=== PATIENT | male | born 1935 | race Caucasian/White ===

== ENCOUNTER 2023-07-11 21:26 | Inpatient (IN) | payer BC ==
[~2023-07-11] VITALS: Ht 165.1 cm; Wt 56.7 kg
[~2023-07-11 21:26] MED LIST: ASA81 PO; ASCO500T20 PO; CALC200T56 PO; CARV6.2554 PO; LIP10 PO; LON10 PO; LUTE6TAB PO; POLY17PO4 PO; SER25 PO; VITD2000 PO; ZIT250 PO; [UNRECOGNIZED DRUG - CODE] PO
[2023-07-11 21:40] VITALS: BP_SYST 123; PULSE 60; RESP 19; TEMP 97.9; O2SAT 97
[2023-07-11 23:18] LABS: BASOPHILS % (AUTO) 0.9 % (0.0-2.0); EOSINOPHILS # (AUTO) 0.3 K/uL (0.0-0.4); EOSINOPHILS % (AUTO) 6.6 % (0.0-4.0); HEMATOCRIT 28.4 % (36-54); HEMOGLOBIN 9.6 g/dL (14.0-18.0); LYMPHOCYTES # (AUTO) 1.5 K/uL (1.0-5.5); LYMPHOCYTES % (AUTO) 29.7 % (20.5-51.5); MEAN CORPUSCULAR HEMOGLOBIN 32 pg (27-31); MEAN CORPUSCULAR HGB CONC 34 % (32-36); MEAN CORPUSCULAR VOLUME 93 fL (79.0-98.0); MONOCYTES # (AUTO) 0.8 K/uL (0.0-1.0); MONOCYTES % (AUTO) 15.9 % (1.7-9.3); NEUTROPHILS # (AUTO) 2.3 K/uL (1.8-7.7); NEUTROPHILS % (AUTO) 46.9 % (40.0-70.0); PLATELET COUNT (AUTO) 279 K/uL (130-430); RED BLOOD CELL COUNT(AUTO) 3.04 MIL/uL (4.2-6.2); RED CELL DISTRIBUTION WIDTH 13.8 % (9.0-15.0)
[2023-07-11 23:25] LABS: BILIRUBIN,URINE NEGATIVE (NEGATIVE); BLOOD, URINE NEGATIVE (NEGATIVE); CLARITY/URINE CLEAR (CLEAR); COLOR,URINE YELLOW (YELLOW); GLUCOSE,URINE NEGATIVE (NEGATIVE); KETONES,URINE NEGATIVE (NEGATIVE); LEUKOCYTE ESTERASE ,URINE NEGATIVE (NEGATIVE); NITRITE, URINE NEGATIVE (NEGATIVE); PROTEIN URINE NEGATIVE (NEGATIVE); UROBILINOGEN,URINE 0.2 (0.2-1.0)
[2023-07-11 23:35] LABS: ALANINE AMINOTRANSFERASE 18 U/L (12-78); ALBUMIN 3.1 g/dL (3.4-4.8); ANION GAP 5 (5-15); ASPARTATE AMINOTRANSFERASE 16 U/L (10-37); CALCIUM 8.7 mg/dL (8.4-11.0); CARBON DIOXIDE 29 mmol/L (23-29); CHLORIDE 104 mmol/L (98-107); CREATININE 1.15 mg/dL (0.55-1.30); GLUCOSE 104 mg/dL (74-106); POTASSIUM 3.5 mmol/L (3.5-5.1); SODIUM SERUM 138 mmol/L (136-145); TOTAL BILIRUBIN 0.5 mg/dL (0.0-1.0); TOTAL PROTEIN, SERUM 6.2 g/dL (6.4-8.3); UREA NITROGEN, BLOOD 19 mg/dL (8-21)
[2023-07-11] MEDS ORDERED: SER25 PO (23:43)
[2023-07-11] MEDS ORDERED: ATOR10TA68 PO (23:43)
[2023-07-11] MEDS ORDERED: CARV6.2554 PO (23:45)
[2023-07-11] MEDS ORDERED: ASPI-1393 PO (23:47)
[2023-07-11] MEDS ORDERED: LON10 PO (23:49)
[2023-07-12] MEDS ORDERED: LORazepam 2 MG/ML VIAL IVP ONE (00:15)
[2023-07-12] MEDS ORDERED: ONDANSETRON HCL 4 MG/2 ML VIAL IVP PRN (01:00)
[2023-07-12] MEDS ORDERED: LORazepam 2 MG/ML VIAL IVP PRN (01:00)
[2023-07-12] MEDS ORDERED: ACETAMINOPHEN 325 MG TABLET PO PRN (01:00)
[2023-07-12 02:50] VITALS: BP_SYST 150; PULSE 62; RESP 18; TEMP 97.8
[2023-07-12 08:00] VITALS: BP_SYST 178; PULSE 90; RESP 20; TEMP 98; O2SAT 100; O2SAT 96
[2023-07-12] MEDS ORDERED: QUEtiapine FUMARATE 25 MG TABLET PO SCH (09:00)
[2023-07-12] MEDS ORDERED: CARVEDILOL 6.25 MG TABLET (COREG) PO ONE (11:00)
[2023-07-12] MEDS ORDERED: ASPIRIN 81 MG TABLET(ECOTRIN) PO ONE (11:00)
[2023-07-12 12:32] VITALS: BP_SYST 159; PULSE 62; RESP 19; TEMP 97.9; O2SAT 97
[2023-07-12 15:43] VITALS: BP_SYST 158; PULSE 81; RESP 20; TEMP 98.1; O2SAT 96
[2023-07-12 16:00] VITALS: BP_SYST 132; PULSE 68; RESP 18; TEMP 98.8; O2SAT 96
[2023-07-12 20:00] VITALS: BP_SYST 132; PULSE 73; RESP 18; TEMP 98.8; O2SAT 96
[2023-07-12] MEDS: ATORVASTATIN 10 MG TABLET PO SCH (22:03)
[2023-07-12] MEDS: CARVEDILOL 6.25 MG TABLET (COREG) PO SCH (22:04)
[2023-07-12] MEDS: QUEtiapine FUMARATE 25 MG TABLET PO SCH (22:04)
[2023-07-13 00:54] VITALS: BP_SYST 135; PULSE 86; RESP 18; TEMP 97.8; O2SAT 96
[2023-07-13 06:07] LABS: BASOPHILS % (AUTO) 0.9 % (0.0-2.0); EOSINOPHILS # (AUTO) 0.3 K/uL (0.0-0.4); EOSINOPHILS % (AUTO) 5.3 % (0.0-4.0); HEMATOCRIT 29.6 % (36-54); HEMOGLOBIN 10.1 g/dL (14.0-18.0); LYMPHOCYTES # (AUTO) 1.4 K/uL (1.0-5.5); LYMPHOCYTES % (AUTO) 25.1 % (20.5-51.5); MEAN CORPUSCULAR HEMOGLOBIN 32 pg (27-31); MEAN CORPUSCULAR HGB CONC 34 % (32-36); MEAN CORPUSCULAR VOLUME 94 fL (79.0-98.0); MONOCYTES # (AUTO) 0.8 K/uL (0.0-1.0); MONOCYTES % (AUTO) 15.1 % (1.7-9.3); NEUTROPHILS % (AUTO) 53.6 % (40.0-70.0); PLATELET COUNT (AUTO) 296 K/uL (130-430); RED BLOOD CELL COUNT(AUTO) 3.14 MIL/uL (4.2-6.2); RED CELL DISTRIBUTION WIDTH 13.5 % (9.0-15.0); WHITE BLOOD COUNT (AUTO) 5.5 K/uL (4.8-10.8)
[2023-07-13 06:54] LABS: ANION GAP 8 (5-15); CALCIUM 8.8 mg/dL (8.4-11.0); CARBON DIOXIDE 27 mmol/L (23-29); CHLORIDE 105 mmol/L (98-107); CREATININE 0.97 mg/dL (0.55-1.30); GLUCOSE 97 mg/dL (74-106); POTASSIUM 3.1 mmol/L (3.5-5.1); SODIUM SERUM 140 mmol/L (136-145); UREA NITROGEN, BLOOD 13 mg/dL (8-21)
[2023-07-13 08:00] VITALS: BP_SYST 151; PULSE 70; RESP 18; TEMP 98.4; O2SAT 100; O2SAT 98
[2023-07-13] MEDS: QUEtiapine FUMARATE 25 MG TABLET PO SCH ×2 (09:20→21:23)
[2023-07-13] MEDS: CARVEDILOL 6.25 MG TABLET (COREG) PO SCH ×2 (09:21→21:23)
[2023-07-13] MEDS: ASPIRIN 81 MG TABLET(ECOTRIN) PO SCH (09:21)
[2023-07-13 12:00] VITALS: BP_SYST 144; PULSE 69; RESP 18; TEMP 97.7; O2SAT 100
[2023-07-13] MEDS ORDERED: POTASSIUM CHLORIDE 20 MEQ TAB.PRT.SR PO ONE (13:00)
[2023-07-13 16:00] VITALS: BP_SYST 152; PULSE 69; RESP 18; TEMP 97.8; O2SAT 100
[2023-07-13 20:00] VITALS: BP_SYST 135; PULSE 72; RESP 18; TEMP 97.7; O2SAT 72
[2023-07-13] MEDS: ATORVASTATIN 10 MG TABLET PO SCH (21:22)
[2023-07-14 00:47] VITALS: BP_SYST 124; PULSE 69; RESP 16; TEMP 97.6; O2SAT 96
[2023-07-14 06:44] LABS: BASOPHILS # (AUTO) 0.1 K/uL (0.0-0.2); EOSINOPHILS # (AUTO) 0.3 K/uL (0.0-0.4); EOSINOPHILS % (AUTO) 4.8 % (0.0-4.0); HEMATOCRIT 33.9 % (36-54); HEMOGLOBIN 11.1 g/dL (14.0-18.0); LYMPHOCYTES # (AUTO) 1.4 K/uL (1.0-5.5); LYMPHOCYTES % (AUTO) 21.6 % (20.5-51.5); MEAN CORPUSCULAR HEMOGLOBIN 31 pg (27-31); MEAN CORPUSCULAR HGB CONC 33 % (32-36); MEAN CORPUSCULAR VOLUME 95 fL (79.0-98.0); MONOCYTES % (AUTO) 15.8 % (1.7-9.3); NEUTROPHILS # (AUTO) 3.8 K/uL (1.8-7.7); NEUTROPHILS % (AUTO) 56.8 % (40.0-70.0); PLATELET COUNT (AUTO) 325 K/uL (130-430); RED BLOOD CELL COUNT(AUTO) 3.58 MIL/uL (4.2-6.2); RED CELL DISTRIBUTION WIDTH 13.7 % (9.0-15.0); WHITE BLOOD COUNT (AUTO) 6.6 K/uL (4.8-10.8)
[2023-07-14 07:00] LABS: ANION GAP 9 (5-15); CALCIUM 9.1 mg/dL (8.4-11.0); CARBON DIOXIDE 27 mmol/L (23-29); CHLORIDE 106 mmol/L (98-107); GLUCOSE 106 mg/dL (74-106); SODIUM SERUM 142 mmol/L (136-145); UREA NITROGEN, BLOOD 14 mg/dL (8-21)
[2023-07-14 08:00] VITALS: O2SAT 99
[2023-07-14 08:06] VITALS: BP_SYST 147; PULSE 66; RESP 18; TEMP 97; O2SAT 96
[2023-07-14] MEDS: ASPIRIN 81 MG TABLET(ECOTRIN) PO SCH (08:49)
[2023-07-14] MEDS: CARVEDILOL 6.25 MG TABLET (COREG) PO SCH ×2 (08:50→23:31)
[2023-07-14] MEDS: QUEtiapine FUMARATE 25 MG TABLET PO SCH ×2 (08:50→23:32)
[2023-07-14] MEDS ORDERED: SER25 PO (09:27)
[2023-07-14 11:43] VITALS: BP_SYST 151; PULSE 82; RESP 18; TEMP 97.8; O2SAT 95
[2023-07-14 16:58] VITALS: BP_SYST 141; PULSE 67; RESP 17; TEMP 98.8; O2SAT 98
[2023-07-14 20:20] VITALS: BP_SYST 154; PULSE 68; RESP 18; TEMP 98.7; O2SAT 97
[2023-07-14] MEDS: ATORVASTATIN 10 MG TABLET PO SCH (23:31)
[2023-07-15 00:36] VITALS: BP_SYST 112; PULSE 82; RESP 18; TEMP 98.4; O2SAT 95
[2023-07-15 08:00] VITALS: O2SAT 99
[2023-07-15 11:37] VITALS: BP_SYST 112; PULSE 59; RESP 18; TEMP 98.5; O2SAT 96
[2023-07-15] MEDS: ASPIRIN 81 MG TABLET(ECOTRIN) PO SCH (11:47)
[2023-07-15] MEDS: QUEtiapine FUMARATE 25 MG TABLET PO SCH ×2 (11:48→20:43)
[2023-07-15] MEDS: CARVEDILOL 6.25 MG TABLET (COREG) PO SCH ×3 (15:11→20:49)
[2023-07-15 15:13] VITALS: BP_SYST 158; PULSE 60; RESP 18; TEMP 97; O2SAT 96
[2023-07-15] MEDS: ATORVASTATIN 10 MG TABLET PO SCH (20:43)
[2023-07-15 22:57] VITALS: BP_SYST 129; PULSE 56; RESP 18; TEMP 98.4; O2SAT 96
[2023-07-16] VITALS (7 sets, daily range): BP systolic 120–139; PULSE 47–69; RESP 17–20; TEMP 96.7–98; O2SAT 97–99
[2023-07-16] MEDS: ASPIRIN 81 MG TABLET(ECOTRIN) PO SCH (08:29)
[2023-07-16] MEDS: CARVEDILOL 6.25 MG TABLET (COREG) PO SCH ×2 (08:30→21:09)
[2023-07-16] MEDS: QUEtiapine FUMARATE 25 MG TABLET PO SCH ×2 (08:30→21:09)
[2023-07-16] MEDS: ATORVASTATIN 10 MG TABLET PO SCH (21:09)
[2023-07-17 01:09] VITALS: BP_SYST 135; PULSE 55; RESP 18; TEMP 97.6; O2SAT 97
[2023-07-17 05:18] LABS: BASOPHILS # (AUTO) 0.1 K/uL (0.0-0.2); BASOPHILS % (AUTO) 1.1 % (0.0-2.0); EOSINOPHILS # (AUTO) 0.3 K/uL (0.0-0.4); EOSINOPHILS % (AUTO) 5.4 % (0.0-4.0); HEMATOCRIT 35.3 % (36-54); HEMOGLOBIN 11.6 g/dL (14.0-18.0); LYMPHOCYTES # (AUTO) 1.4 K/uL (1.0-5.5); LYMPHOCYTES % (AUTO) 23.4 % (20.5-51.5); MEAN CORPUSCULAR HEMOGLOBIN 31 pg (27-31); MEAN CORPUSCULAR HGB CONC 33 % (32-36); MEAN CORPUSCULAR VOLUME 95 fL (79.0-98.0); MONOCYTES # (AUTO) 0.9 K/uL (0.0-1.0); MONOCYTES % (AUTO) 14.7 % (1.7-9.3); NEUTROPHILS # (AUTO) 3.4 K/uL (1.8-7.7); NEUTROPHILS % (AUTO) 55.4 % (40.0-70.0); PLATELET COUNT (AUTO) 312 K/uL (130-430); RED BLOOD CELL COUNT(AUTO) 3.72 MIL/uL (4.2-6.2); RED CELL DISTRIBUTION WIDTH 13.9 % (9.0-15.0); WHITE BLOOD COUNT (AUTO) 6.1 K/uL (4.8-10.8)
[2023-07-17 05:27] LABS: ANION GAP 9 (5-15); CALCIUM 9.1 mg/dL (8.4-11.0); CARBON DIOXIDE 28 mmol/L (23-29); CHLORIDE 104 mmol/L (98-107); CREATININE 1.16 mg/dL (0.55-1.30); GLUCOSE 110 mg/dL (74-106); POTASSIUM 3.7 mmol/L (3.5-5.1); SODIUM SERUM 141 mmol/L (136-145); UREA NITROGEN, BLOOD 16 mg/dL (8-21)
[2023-07-17 08:27] VITALS: BP_SYST 134; PULSE 65; RESP 18; TEMP 98.1; O2SAT 99
[2023-07-17] MEDS: QUEtiapine FUMARATE 25 MG TABLET PO SCH (08:52)
[2023-07-17] MEDS: ASPIRIN 81 MG TABLET(ECOTRIN) PO SCH (08:52)
[2023-07-17] MEDS: CARVEDILOL 6.25 MG TABLET (COREG) PO SCH (08:53)
[2023-07-17 10:08] VITALS: O2SAT 99
[2023-07-17 12:14] VITALS: BP_SYST 129; PULSE 60; RESP 19; TEMP 97.9; O2SAT 97
[2023-07-17 15:22] VITALS: BP_SYST 122; PULSE 68; RESP 18; TEMP 97.8; O2SAT 98
[2023-07-17 16:05] VITALS: BP_SYST 130; PULSE 98; RESP 18; TEMP 98.2; O2SAT 98
== END 2023-07-17 16:25 | disposition home or self-care (01) | DRG 57 ==
LOC: SED 21:26 → SMU 07-12 00:48
PROVIDERS: ADMIT Specialist; ATTEND Specialist
DX: G30.9 Alzheimer's disease, unspecified (principal); F02.82 Dementia in other diseases classified elsewhere, unspecified severity, with psychotic disturbance; E44.1 Mild protein-calorie malnutrition; D64.9 Anemia, unspecified; R53.81 Other malaise; I10 Essential (primary) hypertension; K59.00 Constipation, unspecified; Z79.82 Long term (current) use of aspirin; Z79.899 Other long term (current) drug therapy; Z68.20 Body mass index [BMI] 20.0-20.9, adult
CPT/HCPCS: 36415; 71045; 80048; 80053; 81001; 81003; 82962; 85025; 92610-GN; 93005; 96374; 97110-GP; 97116-GP; 97530-GP; 99285; J2060